=== PATIENT | male | born 1940 | race Caucasian/White ===

== ENCOUNTER 2016-12-30 09:45 | Outpatient (RCR) | payer MEDICARE ==
--- NOTE | 2016-12-02 13:21 | PT/OT/ST INITIAL EVALUATION ---
Department of Health and Human Services Form Approved Health Care Financing Administration OMB No. [id number] PLAN OF CARE/ASSESSMENT FOR OUTPATIENT REHABILITATION (Complete for Initial Claims Only) 1. PATIENT'S NAME Base, Michael Lopez 2. ACC # [id number] [facility] [id number] 4. PROVIDER NO. [id number] 5. TYPE: PT 6. PRIOR HOSPITALIZATION None 7. PRIMARY DX Left mid to low back pain 8. SECONDARY DX Left abdominal swelling 9. ONSET DATE 11/04/2016 10. REFERRAL DATE 11/22/2016 11. SOC. DATE 11/28/2016 12. TIME OF EVAL 2:45 p.m. to 3:47 p.m. [address] RE[address] PHYSICIAN Dr. Delvin Ochoa 13. CHARGES/UNITS PT evaluation high complexity 45027 14. 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 PRIOR LEVEL OF FUNCTION; PERTINENT HISTORY (Prior therapy results, reason for referral.) S: Prior to therapy, the patient consented to today's evaluation and treatment. The patient is a 76-year-old male referred to physical therapy by Dr. Delvin Ochoa to address left mid to low back pain. Mechanism of injury: The patient reports there was no significant injury and his pain has been steadily getting worse since 11/04/2016. The patient was in the ER 1 week ago Monday due to pain. The patient states he can only walk 300 feet in one attempt, which is out to his shop. The patient reports there is no numbness or tingling into his left lower extremity. Primary Complaint: Left abdominal and left-sided mid to low back pain and abdominal swelling. Occupational and social history: The patient is retired. 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 He was able to work in his own shop in his backyard as he wanted and he was very active. He is unable to do these things currently due to pain. His pain is high enough that he gets nauseous. Pain level: The patient rates current pain level as 10/10 and describes the pain as a shooting and sharp pain. Obstacles to delivery of care: The patient does not show clear signs of musculoskeletal source of pain. The patient is being referred back to physician for further assessment. Aggravating factors: Include most movements. Standing upright the patient is unable to sit still for long periods. The patient is unable to lay on his back or his right side. The patient is unable to lie on his back regardless whether he has his knees bent or extended. Relieving factors: Include urinating. The patient is able to get on his knees with his trunk slightly flexed. Bending slightly forward is his normal posture at his point in time to help relieve some pain and walking with his left lower extremity in a pigeon-toed gait helps relieve pain. The patient has to frequently change posture and several times became nauseous during PT evaluation due to pain. Diagnostic testing: The patient has had 2 CT scans done, 1 with contrast and 1 without contrast. Past medical history: Includes osteoarthritis, history of UTI, in which he self-caths 2 times a day to get rid of residual urine in his bladder. Itching skin for 35 years, hypertension which is usually controlled with medication, but recently with pain he states his blood pressure is only barely controlled. History of staph infections and C-diff. 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 These were removed 2 to 3 years ago. A condition named BXO (Balanitis xerotica obliterans). 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 The last one was 6 months ago. Hiatal hernia repair, regular hernia repair, cancer spot removed from his mouth 2 to 3 years ago. Current medications: Include Tylenol and a full list in the chart including amlodipine, Lipitor, Zoloft, atenolol, Tamsulosin, QVAR, aspirin, loratadine, CoQ 10 fish oil and Pro-Bio. Leisure activities: Include mechanical things in his shop including small and large engines, getting up and down ladders, working on vehicles, playing dominos and cards. Activity level: Listed as high. Personal health rating: Listed as fair. Patient's Goal: The patient's goal for physical therapy includes to stop the pain. 16. INITIAL ASSESSMENT/SAFETY PRECAUTIONS/MEDICAL COMPLICATIONS (Level of function at start of care. Be specific, use objective measures, list problems.) O: APPEARANCE AND OBSERVATION: The patient comes into the clinic and has a difficulty time sitting still has to frequently move positions. He does have altered posturing due to pain and tends to sit in a slouched position. When standing, stands with a slightly forward flexed bent posture. The patient also has some limited active range of motion movements and has a few occasions where his pain is intense enough to make him slightly nauseous when asked to do certain activities. The patient has to sleep on his left side only. He cannot lie on his right side and he cannot lie on his back, regardless of whether his knees are bent or extended. The patient reports that his bowel movements have been highly irregular since his pain began in October, whereas they were very regular prior to that. He can be constipated or he can have loose bowels. The patient feels like he constantly needs to go, but may only pass a small amount of gas. The patient states that he has noticed that he drains the urine out of his bladder that his bladder is not as full as he used to be when he caths. The patient lives in his home with his . They spend the larios in [place]. They have 3 to 4 steps into their house with a railing on both sides. He has a shop that he goes to out back. The patient does not have any stairs in his house that he has to do. Looking at patient's back in a standing, slightly forward bent position, the patient was tender to the left low back, however, the left low back was sitting more posterior than the right side and did have some tenderness through the left low back, however, the pain was also very diffuse through that region. PALPATION: The patient was tender to palpation through the left side of his low back. Diffuse pain through his left side and left mid to low back. SPECIAL TESTS: None RANGE OF MOTION/FLEXIBILITY: Active range of motion of the lumbar spine-flexion 100% with some pain returning to an upright position. Extension the patient can get to almost neutral, or an upright position and states it causes a lot of pain to go into extension. Right side bending approximately 15% with pain on his left side. Left side bending 25% with pain on his left side. Right rotation 25%, left rotation minimal with pain. STRENGTH: Manual muscle testing of the hips flexion bilateral 4+/5, abduction bilateral 4+/5, extension bilateral 4/5. Knee manual muscle testing flexion bilateral 5/5, knee extension bilateral 5/5. Ankle plantar flexion and dorsiflexion the patient able to hold against resistance from PT into both dorsiflexion and plantar flexion. TODAY'S TREATMENT: Includes the initial PT evaluation only as the patient is being referred back to physician due to non-musculoskeletal symptoms. 17. INITIAL POC: (Specify procedures, modalities, short and [facility] goals) A: This patient presents with the diagnosis of left mid to low back pain. The patient has several concerning symptoms that do not appear to be musculoskeletal in origin, such as pain being relieved with urination. The patient starts out his day with his abdomen not feeling as full as it does later in the day and he can grab skin in both hands and as the day progresses, then as the day progresses, his abdomen becomes much firmer and tighter and is unable to grab skin in his hands. PT palpated the left abdomen and it was very firm with no much give in his stomach. The patient also has, what the patient calls a knot, however, it is an additional area of extra swelling on the left side of his abdomen. The patient is being referred back to his physician to assess other origins of pain and to rule out non-musculoskeletal causes prior to continuation of any therapy. PROGNOSIS: This patient is being referred back to his physician. CONTRAINDICATIONS, PRECAUTIONS AND OBSTACLES TO DELIVERY OF CARE: The patient is being referred back to physician due to previous comments. INFORMED CONSENT: The prognosis and goals were discussed with the patient, as well as the expected outcome and possible risks. The patient agreed with PT's decision to refer back to physician. SHORT TERM GOALS: Goals are not established due to not having the patient continue with PT and he is being referred back to physician. If patient is sent back to PT then goals will be sent with re-eval. P: Plan to refer this patient back to physician. The physician's office was called on the date of evaluation, 11/28/2016 and a message was left with Dr. Horne's office as to PT's findings and concerns due to the patient likely to call Dr. Ochoa tomorrow for another appointment. 18. FREQUENCY NA 19. DURATION NA 20. FUNCTIONAL LEVEL (End of claim period) 21. PHYSICIAN SIGNATURE ? ON FILE OR ENTER HERE: 22. DATE: I certify the need for these services furnished under this plan of care and if for partial hospitalization. 23. CERTIFICATION FROM THROUGH [facility]
== END 2017-01-10 08:48 | disposition home or self-care (01) ==
LOC: PT 09:45
PROVIDERS: ATTEND Family Medicine
DX: M54.5 Low back pain (principal); R19.04 Left lower quadrant abdominal swelling, mass and lump
CPT/HCPCS: 97110; 97163; 97164; G8978; G8979